=== PATIENT | female | born 1985 | race African-American/Black ===

== ENCOUNTER 2017-08-02 12:47 | Emergency (ER) | payer OTHER ==
[2017-08-02] MEDS ORDERED: LORazepam TAB(*) 1 MG PO ONE (12:54)
[2017-08-02 13:11] LABS: ABS Basophils 0 10^3/ul (0-0.2); ABS Eosinophils 0.1 10^3/ul (0-0.6); ABS Lymphocytes 1.8 10^3/ul (1.0-4.8); ABS Monocytes 0.3 10^3/ul (0-0.8); ABS Neutrophils 4.2 10^3/ul (1.5-7.7); ABS Nucleated RBC 0 10^3/ul; Hematocrit 35 % (35-47); Hemoglobin 11.6 g/dl (12.0-16.0); Lymphocyte % 28.3 % (25-47); Mean Corpuscular HGB Conc 33 g/dl (31-36); Mean Corpuscular Hemoglobin 27 pg (27-31); Mean Corpuscular Volume 80 fL (80-97); Mean Platelet Volume 8 um3 (7.4-10.4); Nucleated Red Blood Cells % 0; Platelet Count 215 10^3/ul (150-450); Red Blood Count 4.35 10^6/ul (4.0-5.4); Red Cell Distribution Width 17 % (10.5-15); White Blood Count 6.4 10^3/ul (3.5-10.8)
[2017-08-02 13:24] LABS: EGFR Non-African American 71.7 (>60)
--- OUTSIDE RECORDS SUMMARY | 2017-08-02 13:45 | XMS REPORT ---
:1985 External Reference #:[id number] Author Organization [facility] Address [address] [facility] [address] [address] Phone [phone] Care Team Providers Name Role Phone Cammy Gilbert MD Primary Care Physician Unavailable Payers Type Date Identification Numbers Payment Provider Subscriber Commercial Policy Number: [id number] [employer] Student [employer] Domi Hendrix PayID: [id number] [address] [place] [address] Problems Date Description Provider Status Onset: 01/10/2016 Asthma Edson Butler M.D. Active Onset: 02/23/2016 Pneumonia Britney Medrano MD Active Family History Date Family Member(s) Problem(s) Comments Father Hypertension Mother Alive And Well Social History Type Date Description Comments Marital Status Single Occupation Student 1 dog in the home ETOH Use Occasionally consumes alcohol Smoking Patient has never smoked Daily Caffeine Does Not Consume Caffeine Exercise Type/Frequency Does not exercise Allergies, Adverse Reactions, Alerts Date Description Reaction Status Severity Comments 02/24/2016 Augmentin fever, body pains active 02/27/2016 Penicillins fever, body pains active 02/27/2016 Zosyn fever, body pains active 04/30/2017 Dye, Red active 01/19/2016 NKDA inactive Medications Medication Date Status Form Strength Qnty SIG Indications Ordering Provider Multiple 00/00/ Active Tablets 1 by mouth Unknown Vitamin 0000 every day Ventolin HFA / Active Aerosol 108(90Bas 2 puffs by Unknown 0000 e) mouth four mcg/Act times a day as needed Advil / Active Tablets 200mg as needed Unknown 0000 Tylenol 00/00/ Active Tablets 325mg as needed Unknown 0000 Albuterol / Active Nebulizer (2.5mg/3M 1 vial via Unknown Sulfate 0000 L) 0.083% nebulizer 4 times daily as needed Propranolol 00/ Active Tablets 20mg Take 1/2 Unknown HCL 0000 Tablet By Mouth Daily as Needed For Anxiety Advair HFA / Active Aerosol 2 puff twice Unknown 0000 a day as needed (OTC) Clindamycin 04/30/ Hx Capsules 300mg 15cap 1 tabs by J03.80 Edson HCL 2017 - s mouth 3 D. 07/07/ times a day 2016 M.D. Nystatin 07/11/ Hx Suspension [id number] 120ml 4 B37.0 Edson 2016 - t/ML milliliters D. 04/29/ four times a Michelle2016 day, swish M.D. and swallow for 7 days Ondansetron 02/26/ Hx Tablets 4mg 30tab 1 tab R11.0 Edson 2016 - Dispers s dissolve D. 05/29/ under tongue 2015 every 8 M.D. hours as needed Moxifloxacin 02/21/ Hx Tablets 400mg 1 by mouth Unknown HCL 2016 - every day 2015 Linezolid 02/21/ Hx Tablets 600mg 1 by mouth Unknown 2016 - twice a day 2015 Ferrous 02/21/ Hx Tablets 325(65Fe) 1 by mouth Unknown Sulfate 2016 - mg every day 2016 Amoxicillin/Cl 02/15/ Hx Tablets 500-125mg 14tab 1 tab by R50.9 Edson avulanate 2015 - s mouth two D. Potassium 02/21/ times per Michelle2015 day M.D. Invanz / Hx Solution 1gm every 24 Unknown 0000 - Rec hours 2015 [facility] Probiotic / Hx Capsules 1 by mouth Unknown Acidophilus 0000 - daily 2015 Advair Diskus / Hx Aerosol 100-50mcg 1 inhalation Unknown 0000 - /Dose twice daily 2015 Nuvaring / Hx Ring 0.12-0.01 insert 1 Unknown 0000 - 5mg/24HR ring 07/10/ vaginally 2016 every [address] for 3 weeks, remove, and replace with a new ring after 7 day break for b Monistat 7 00/ Hx insert at Unknown 0000 - bedtime 2016 Vital Signs Date Vital Result Comment 07/08/2017 Height 68 inches 5'8" Weight 168.38 lb Heart Rate 84 /min BP Systolic Sitting 128 mmHg BP Diastolic Sitting 80 mmHg Respiratory Rate 14 /min Body Temperature 99.3 F BMI (Body Mass Index) 25.6 kg/m2 04/30/2017 Height 68 inches 5'8" Weight 162.50 lb Heart Rate 84 /min BP Systolic Sitting 120 mmHg BP Diastolic Sitting 82 mmHg Respiratory Rate 14 /min Body Temperature 98.5 F O2 % BldC Oximetry 98 % BMI (Body Mass Index) 24.7 kg/m2 07/25/2016 Height 68 inches 5'8" Weight 169.12 lb Heart Rate 86 /min BP Systolic Sitting 110 mmHg BP Diastolic Sitting 78 mmHg Respiratory Rate 14 /min Body Temperature 98.8 F O2 % BldC Oximetry 97 % BMI (Body Mass Index) 25.7 kg/m2 07/11/2016 Height 68 inches 5'8" Weight 167.00 lb Heart Rate 84 /min BP Systolic Sitting 108 mmHg BP Diastolic Sitting 60 mmHg Respiratory Rate 14 /min Body Temperature 98.2 F BMI (Body Mass Index) 25.4 kg/m2 05/30/2016 Height 68 inches 5'8" Weight 171.50 lb Heart Rate 94 /min BP Systolic Sitting 130 mmHg BP Diastolic Sitting 92 mmHg Respiratory Rate 14 /min Body Temperature 99.6 F BMI (Body Mass Index) 26.1 kg/m2 02/27/2016 Height 68 inches 5'8" Weight 157.38 lb Heart Rate 86 /min BP Systolic Sitting 106 mmHg BP Diastolic Sitting 62 mmHg Respiratory Rate 14 /min Body Temperature 98.7 F O2 % BldC Oximetry 98 % BMI (Body Mass Index) 23.9 kg/m2 02/23/2016 Height 68 inches 5'8" Weight 160.00 lb Heart Rate 86 /min BP Systolic 108 mmHg BP Diastolic 84 mmHg Respiratory Rate 14 /min Body Temperature 98.5 F O2 % BldC Oximetry 97 % BMI (Body Mass Index) 24.3 kg/m2 Neck Circumference in inches 12 02/16/2016 Height 68 inches 5'8" Weight 160.12 lb Heart Rate 104 /min BP Systolic Sitting 110 mmHg BP Diastolic Sitting 80 mmHg Respiratory Rate 14 /min Body Temperature 100.7 F O2 % BldC Oximetry 97 % BMI (Body Mass Index) 24.3 kg/m2 01/26/2016 Height 68 inches 5'8" Weight 153.00 lb Heart Rate 96 /min BP Systolic Sitting 106 mmHg BP Diastolic Sitting 76 mmHg Respiratory Rate 14 /min Body Temperature 98.9 F BMI (Body Mass Index) 23.3 kg/m2 01/19/2016 Height 68 inches 5'8" Weight 153.00 lb Heart Rate 96 /min BP Systolic Sitting 106 mmHg BP Diastolic Sitting 64 mmHg Respiratory Rate 14 /min Body Temperature 98.7 F BMI (Body Mass Index) 23.3 kg/m2 01/10/2016 Height 68 inches 5'8" Weight 152.00 lb Heart Rate 84 /min BP Systolic Sitting 112 mmHg BP Diastolic Sitting 64 mmHg Respiratory Rate 14 /min Body Temperature 98.2 F BMI (Body Mass Index) 23.1 kg/m2 Results Test Date Test Result H/L Range Note Laboratory test 06/06/2017 Tissue Culture SEE RESULT BELOW 1 finding & Sensitiv Laboratory test 06/06/2017 Cytology Non-Shirt Creaser SEE RESULT BELOW 2 finding CBC Auto Diff 04/30/2017 White Blood Count 4.9 10^3/uL 3.5-10.8 Red Blood Count 4.47 10^6/uL 4.0-5.4 Hemoglobin 11.8 g/dL Low 12.0-16.0 Hematocrit 35 % 35-47 Mean Corpuscular Volume 79 fL Low 80-97 Mean Corpuscular Hemoglobin 26 pg Low 27-31 Mean Corpuscular HGB Conc 33 g/dL 31-36 Red Cell Distribution Width 15 % 10.5-15 Platelet Count 218 10^3/uL 150-450 Mean Platelet Volume 8 um3 7.4-10.4 Abs Neutrophils 3.2 10^3/uL 1.5-7.7 Abs Lymphocytes 1.2 10^3/uL 1.0-4.8 Abs Monocytes 0.3 10^3/uL 0-0.8 Abs Eosinophils 0.1 10^3/uL 0-0.6 Abs Basophils 0 10^3/uL 0-0.2 Abs Nucleated RBC 0 10^3/uL Granulocyte % 66.7 % 38-83 Lymphocyte % 24.8 % Low 25-47 Monocyte % 6.3 % 1-9 Eosinophil % 1.8 % 0-6 Basophil % 0.4 % 0-2 Nucleated Red Blood Cells % 0 HIV 1/2 AB Evaluation 04/30/2017 HIV 1 2 Antibody Nonreactive Nonreactive 3 Gerber Saez 04/30/2017 Ebv Capsid Ag IgG Ab Positive Negative Comprehensive Ebv Capsid Ag IgM Ab Positive Negative Gerber-Saez Nuclear Antigen Positive Negative Gerber-Saez Virus Interp See Comment 4 GC/Chlamydia Amplified Rna 04/30/2017 Chlamydia trachomatis Rna Negative Negative Neisseria gonorrhoeae (GC) Rna Negative Negative C Trachomatis Misc Source Rna 04/30/2017 C trachomatis Source THROAT 5 Chlamydia trachomatis Rna Negative Negative 5, 6 N Gonorrhoea Misc Source Rna 04/30/2017 N. gonorrhoeae Source THROAT 5 Neisseria Gonorrhoeae Rna Negative Negative 5, 7 Laboratory test finding 02/17/2016 Blood Culture SEE RESULT BELOW 8 Comp Metabolic Panel 02/17/2016 Sodium 134 mmol/L 133-145 Potassium 4.0 mmol/L 3.5-5.0 Chloride 102 mmol/L 101-111 Co2 Carbon Dioxide 25 mmol/L 22-32 Anion Gap 7 mmol/L 2-11 Glucose 83 mg/dL 70-100 Blood Urea Nitrogen 9 mg/dL 6-24 Creatinine 0.71 mg/dL 0.51-0.95 BUN/Creatinine Ratio 12.7 8-20 Calcium 8.9 mg/dL 8.6-10.3 Total Protein 7.8 g/dL 6.4-8.9 Albumin 3.6 g/dL 3.2-5.2 Globulin 4.2 g/dL High 2-4 Albumin/Globulin Ratio 0.9 Low 1-3 Total Bilirubin 0.30 mg/dL 0.2-1.0 Alkaline Phosphatase 124 U/L High 34-104 Alt 32 U/L 7-52 Ast 36 U/L 13-39 Egfr Non- 97.3 >60 Egfr 125.2 >60 9 CBC Auto Diff 02/17/2016 White Blood Count 9.5 10^3/uL 3.5-10.8 Red Blood Count 4.18 10^6/uL 4.0-5.4 Hemoglobin 9.5 g/dL Low 12.0-16.0 Hematocrit 30 % Low 35-47 Mean Corpuscular Volume 71 fL Low 80-97 10 Mean Corpuscular Hemoglobin 23 pg Low 27-31 Mean Corpuscular HGB Conc 32 g/dL 31-36 Red Cell Distribution Width 20 % High 10.5-15 Platelet Count 389 10^3/uL 150-450 Mean Platelet Volume 8 um3 7.4-10.4 Abs Neutrophils 7.8 10^3/uL High 1.5-7.7 Abs Lymphocytes 0.9 10^3/uL Low 1.0-4.8 Abs Monocytes 0.4 10^3/uL 0-0.8 Abs Eosinophils 0.2 10^3/uL 0-0.6 Abs Basophils 0.1 10^3/uL 0-0.2 Abs Nucleated RBC 0 10^3/uL Granulocyte % 82.9 % 38-83 Lymphocyte % 9.5 % Low 25-47 Monocyte % 4.6 % 1-9 Eosinophil % 2.1 % 0-6 Basophil % 0.9 % 0-2 Nucleated Red Blood Cells % 0 Laboratory test finding 02/17/2016 C Reactive Protein 81.37 mg/L High &lt ; 5.00 11 CBC Auto Diff 01/24/2016 White Blood Count 5.9 10^3/uL 3.5-10.8 12 Red Blood Count 4.07 10^6/uL 4.0-5.4 12 Hemoglobin 9.4 g/dL Low 12.0-16.0 12 Hematocrit 29 % Low 35-47 12 Mean Corpuscular Volume 72 fL Low 80-97 12, 13 Mean Corpuscular Hemoglobin 23 pg Low 27-31 12 Mean Corpuscular HGB Conc 32 g/dL 31-36 12 Red Cell Distribution Width 21 % High 10.5-15 12 Platelet Count 305 10^3/uL 150-450 12 Mean Platelet Volume 8 um3 7.4-10.4 12 Abs Neutrophils 3.8 10^3/uL 1.5-7.7 12 Abs Lymphocytes 1.4 10^3/uL 1.0-4.8 12 Abs Monocytes 0.5 10^3/uL 0-0.8 12 Abs Eosinophils 0.2 10^3/uL 0-0.6 12 Abs Basophils 0 10^3/uL 0-0.2 12 Abs Nucleated RBC 0 10^3/uL 12 Granulocyte % 64.6 % 38-83 12 Lymphocyte % 24.2 % Low 25-47 12 Monocyte % 8.2 % 1-9 12 Eosinophil % 2.6 % 0-6 12 Basophil % 0.4 % 0-2 12 Nucleated Red Blood Cells % 0.1 12 Laboratory test 01/24/2016 C Reactive Protein 24.09 mg/L High < 5.00 12, 14 finding Comp Metabolic Panel 01/24/2016 Sodium 136 mmol/L 133-145 12 Potassium 3.5 mmol/L 3.5-5.0 12 Chloride 102 mmol/L 101-111 12 Co2 Carbon Dioxide 27 mmol/L 22-32 12 Anion Gap 7 mmol/L 2-11 12 Glucose 94 mg/dL 70-100 12 Blood Urea Nitrogen 10 mg/dL 6-24 12 Creatinine 0.65 mg/dL 0.51-0.95 12 BUN/Creatinine Ratio 15.4 8-20 12 Calcium 9.0 mg/dL 8.6-10.3 12 Total Protein 7.4 g/dL 6.4-8.9 12 Albumin 3.6 g/dL 3.2-5.2 12 Globulin 3.8 g/dL 2-4 12 Albumin/Globulin Ratio 0.9 Low 1-3 12 Total Bilirubin 0.20 mg/dL 0.2-1.0 12 Alkaline Phosphatase 67 U/L 34-104 12 Alt 15 U/L 7-52 12 Ast 17 U/L 13-39 12 Egfr Non- 107.8 >60 12 Egfr 138.6 >60 12, 15 Laboratory test finding 01/16/2016 Ferritin < 10.0 ng/mL Low 11-307 Iron & Iron Binding Capacity 01/16/2016 Iron 37 g/dL Low 50-212 Unsaturated Iron Binding 349 g/dL Total Iron Binding Capacity 386 g/dL 250-450 % Iron Saturation 10 % Low 15-55 Laboratory test finding 01/16/2016 C Reactive Protein 2.03 mg/L < 5.00 16 Comp Metabolic Panel 01/16/2016 Sodium 137 mmol/L 133-145 Potassium 3.4 mmol/L Low 3.5-5.0 Chloride 104 mmol/L 101-111 Co2 Carbon Dioxide 26 mmol/L 22-32 Anion Gap 7 mmol/L 2-11 Glucose 86 mg/dL 70-100 Blood Urea Nitrogen 7 mg/dL 6-24 Creatinine 0.66 mg/dL 0.51-0.95 BUN/Creatinine Ratio 10.6 8-20 Calcium 8.9 mg/dL 8.6-10.3 Total Protein 7.0 g/dL 6.4-8.9 Albumin 3.5 g/dL 3.2-5.2 Globulin 3.5 g/dL 2-4 Albumin/Globulin Ratio 1.0 1-3 Total Bilirubin 0.50 mg/dL 0.2-1.0 Alkaline Phosphatase 64 U/L 34-104 Alt 14 U/L 7-52 Ast 19 U/L 13-39 Egfr Non- 105.9 >60 Egfr 136.2 >60 17 CBC Auto Diff 01/16/2016 White Blood Count 3.9 10^3/uL 3.5-10.8 Red Blood Count 3.76 10^6/uL Low 4.0-5.4 Hemoglobin 8.7 g/dL Low 12.0-16.0 Hematocrit 27 % Low 35-47 Mean Corpuscular Volume 72 fL Low 80-97 18 Mean Corpuscular Hemoglobin 23 pg Low 27-31 Mean Corpuscular HGB Conc 32 g/dL 31-36 Red Cell Distribution Width 21 % High 10.5-15 Platelet Count 292 10^3/uL 150-450 Mean Platelet Volume 8 um3 7.4-10.4 Abs Neutrophils 2.0 10^3/uL 1.5-7.7 Abs Lymphocytes 1.4 10^3/uL 1.0-4.8 Abs Monocytes 0.3 10^3/uL 0-0.8 Abs Eosinophils 0.1 10^3/uL 0-0.6 Abs Basophils 0 10^3/uL 0-0.2 Abs Nucleated RBC 0 10^3/uL Granulocyte % 51.9 % 38-83 Lymphocyte % 36.1 % 25-47 Monocyte % 8.7 % 1-9 Eosinophil % 2.4 % 0-6 Basophil % 0.9 % 0-2 Nucleated Red Blood Cells % 0.1 Laboratory test finding 01/09/2016 C Reactive Protein 3.02 mg/L < 5.00 19 Comp Metabolic Panel 01/09/2016 Sodium 135 mmol/L 133-145 Potassium 4.2 mmol/L 3.5-5.0 Chloride 101 mmol/L 101-111 Co2 Carbon Dioxide 26 mmol/L 22-32 Anion Gap 8 mmol/L 2-11 Glucose 83 mg/dL 70-100 Blood Urea Nitrogen 13 mg/dL 6-24 Creatinine 0.69 mg/dL 0.51-0.95 BUN/Creatinine Ratio 18.8 8-20 Calcium 9.5 mg/dL 8.6-10.3 Total Protein 8.0 g/dL 6.4-8.9 Albumin 3.9 g/dL 3.2-5.2 Globulin 4.1 g/dL High 2-4 Albumin/Globulin Ratio 1.0 1-3 Total Bilirubin 0.40 mg/dL 0.2-1.0 Alkaline Phosphatase 80 U/L 34-104 Alt 22 U/L 7-52 Ast 20 U/L 13-39 Egfr Non- 100.6 >60 Egfr 129.4 >60 20 CBC Auto Diff 01/09/2016 White Blood Count 4.0 10^3/uL 3.5-10.8 Red Blood Count 4.07 10^6/uL 4.0-5.4 Hemoglobin 9.2 g/dL Low 12.0-16.0 Hematocrit 29 % Low 35-47 Mean Corpuscular Volume 71 fL Low 80-97 21 Mean Corpuscular Hemoglobin 23 pg Low 27-31 Mean Corpuscular HGB Conc 32 g/dL 31-36 Red Cell Distribution Width 19 % High 10.5-15 Platelet Count 586 10^3/uL High 150-450 Mean Platelet Volume 7 um3 Low 7.4-10.4 Abs Neutrophils 1.7 10^3/uL 1.5-7.7 Abs Lymphocytes 1.8 10^3/uL 1.0-4.8 Abs Monocytes 0.3 10^3/uL 0-0.8 Abs Eosinophils 0.1 10^3/uL 0-0.6 Abs Basophils 0.1 10^3/uL 0-0.2 Abs Nucleated RBC 0 10^3/uL Granulocyte % 43.0 % 38-83 Lymphocyte % 44.3 % 25-47 Monocyte % 7.8 % 1-9 Eosinophil % 2.3 % 0-6 Basophil % 2.6 % High 0-2 Nucleated Red Blood Cells % 0 1 SEE RESULT BELOW Name: DOMI HENDRIX : [address]: Bao Barrios MD Acct: [id number] Unit: [id number] AGE: 31 Location: LAB Re06/06/17 SEX: F Status: REG REF SPEC: [id number] KALEY: 06/06/[address]: Bao Barrios MD REQ: [id number] RECD: 06/06/17 STATUS: RES OTHR DR: Cammy Butler MD _ SOURCE: TISSUE SPDESC:OTHER ORDERED: Tissue Cult/GS, Fungal - Other, AFB Cult Smear Procedure Result Reported Site Tissue Gram Stain Final 06/06/17- 1836 ML 4+ Nucleated Cells 2+ Neutrophils No Organisms Seen Preparation By Cytospin Smear Tissue Culture Preliminary 06/07/17- 1048 ML No Growth Day 1 Fungal Cult - Other Sources PENDING Acid Fast Stain - Direct Final 06/06/17- 1836 ML AFB Smear Result No Acid Fast Bacillus Present (Negative) Preparation By Cytospin Smear Due to limited sensitivity of the smear, results should be used as an adjunct in evaluating the patient's status. This specimen has been sent to referral laboratory for mycobacterial culture. * ML - MAIN LAB ([facility]) . END OF REPORT * ML=Testing performed at Main Lab DEPARTMENT OF PATHOLOGY, [address] [place] [address] Jori Baires M.D. 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 See comment. Comment: The aspirate smears are amply cellular demonstrating numerous noncaseating well formed granulomas with variable associated acute inflammation. The background demonstrates mixed lymphocytes with scattered histiocytes including tingible body forms. No evidence of hematolymphoid or metastatic neoplasia identified in this specimen. The differential diagnosis includes infectious etiologies including mycobacterial, fungal or bacterial (i.e. Bartonella, etc.) or less likely as a noninfectious reaction. These findings are consistent with the clinical exam. Correlation with pending microbiology studies as well as additional serologic studies may be considered as warranted. The procedure was explained to and understood by the patient. Signed consent was obtained and a time out procedure was performed at the bedside to verify patient identity and biopsy site. Fine needle aspiration biopsy was performed times 2 with a 0.5 gauge needle on 3 cm soft tender right angle of jaw nodule. Adequacy was assessed by fast stain technique. The procedure was tolerated well without complications. CONTINUED ON NEXT PAGE * ML=Testing performed at Main Lab DEPARTMENT OF PATHOLOGY, [address] [place] [address] Jori Baires M.D. Director [facility] # [id number] RUN DATE: 06/10/17 [facility] LAB LIVE PAGE 2 Patient: DOMI HENDRIX [id number] (Continued) SPECIMEN COMMENTS (Continued) 1. SUBMANDIBULAR - RIGHT SUBMANDIBULAR MASS FINE NEEDLE ASPIRATION BY PALPATION CLINICAL HISTORY 3 cm tender right angle of jaw mass. GROSS DESCRIPTION 4 Alcohol fixed slide(s) and Microbiology studies ordered. Signed (signature on file) Jori Baires MD [id number] END OF REPORT * ML=Testing performed at Main Lab DEPARTMENT OF PATHOLOGY, [address] [place] [address] Jori Baires M.D. Director [facility] # [id number] 3 It is recognized that currently available assays for the detection of antibodies to HIV-1 and/or HIV-2 may not detect all infected individuals. HIV antibodies may be undetectable in some stages of the infection and in some clinical conditions. The performance of this assay has not been established for populations of infants or children. Assayed by Chemiluminescence Microparticle Immunoassay on the Siemens Advia Centaur CP. Values obtained with different methods or kits cannot be used interchangeably.The diagnostic specificity of the ADVIA Centaur 1/O/2 Enhanced assay in the low risk population was 99.90% (6052/6058) with a 95% confidence interval of 99.78 to 99.96%. 4 RESULT: Results may suggest recovery or reactivation. ADDITIONAL INFORMATION In most populations, at least 90% of the adult population will have been infected with EBV sometime in the past and therefore, will be positive for anti-VCA/IgG and anti- EBNA. Antibodies to EBNA develop 6-8 weeks after primary infection and remain present for life. Presence of VCA/ IgM antibodies indicates recent primary infection with EBV. Test Performed by: [facility] [employer] [facility] [address] [place] [address] [id number] Source: throat 6 ADDITIONAL INFORMATION This report is intended for use in clinical monitoring and management of patients. It is not intended for use in medical-legal applications. This test has been modified from the hairspring adjuster's instructions. Its performance characteristics were determined by [facility] in a manner consistent with CLIA requirements. This test has not been cleared or approved by the U.S. Food and Drug Administration. Test Performed by: [facility] - [address] [address] 7 ADDITIONAL INFORMATION This report is intended for use in clinical monitoring and management of patients. It is not intended for use in medical-legal applications. This test has been modified from the hairspring adjuster's instructions. Its performance characteristics were determined by [facility] in a manner consistent with CLIA requirements. This test has not been cleared or approved by the U.S. Food and Drug Administration. Test Performed by: [facility] - [address] [address] 8 SEE RESULT BELOW Name: DOMI HENDRIX : [address]: Edson Butler MD Acct: [id number] Unit: [id number] AGE: 30 Location: [facility] Re02/17/16 SEX: F Status: REG REF SPEC: [id number] KALEY: 02/17/[address]: Edson Butler MD REQ: [id number] RECD: 02/17/16 STATUS: COMP _ SOURCE: BLOOD,VENO SPDESC: ORDERED: Blood Cult Procedure Result Reported Site Aerobic Culture Bottle Final 02/22/16- 1027 ML No Growth Day 5 Anaerobic Culture Bottle Final 02/22/16- 1027 ML No Growth Day 5 * ML - MAIN LAB ([facility]) . END OF REPORT * ML=Testing performed at Main Lab DEPARTMENT OF PATHOLOGY, [address] [place] [address] Jori Baires M.D. Director [facility] # [id number] 9 Because ethnic data is not always readily available, this report includes an eGFR for both -Americans and non- Americans. The National Kidney Disease Education Program (NKDEP) does not endorse the use of the MDRD equation for patients that are not between the ages of 18 and 70, are , have extremes of body size, muscle mass, or nutritional status, or are non- or non-. According to the National Kidney Foundation, irrespective of diagnosis, the stage of the disease is based on the level of kidney function: Stage Description GFR(mL/min/1.73 m(2)) 1 Kidney damage with normal or decreased GFR 90 2 Kidney damage with mild decrease in GFR 60-89 3 Moderate decrease in GFR 30-59 4 Severe decrease in GFR 15-29 5 Kidney failure <15 (or dialysis) 10 Consistent with previous results on 01/24/16. 11 Acute inflammation: >10.00 12 [id number] Consistent with previous results on 01-15. 14 Acute inflammation: >10.00 15 Because ethnic data is not always readily available, this report includes an eGFR for both -Americans and non- Americans. The National Kidney Disease Education Program (NKDEP) does not endorse the use of the MDRD equation for patients that are not between the ages of 18 and 70, are , have extremes of body size, muscle mass, or nutritional status, or are non- or non-. According to the National Kidney Foundation, irrespective of diagnosis, the stage of the disease is based on the level of kidney function: Stage Description GFR(mL/min/1.73 m(2)) 1 Kidney damage with normal or decreased GFR 90 2 Kidney damage with mild decrease in GFR 60-89 3 Moderate decrease in GFR 30-59 4 Severe decrease in GFR 15-29 5 Kidney failure <15 (or dialysis) 16 Acute inflammation: >10.00 17 Because ethnic data is not always readily available, this report includes an eGFR for both -Americans and non- Americans. The National Kidney Disease Education Program (NKDEP) does not endorse the use of the MDRD equation for patients that are not between the ages of 18 and 70, are , have extremes of body size, muscle mass, or nutritional status, or are non- or non-. According to the National Kidney Foundation, irrespective of diagnosis, the stage of the disease is based on the level of kidney function: Stage Description GFR(mL/min/1.73 m(2)) 1 Kidney damage with normal or decreased GFR 90 2 Kidney damage with mild decrease in GFR 60-89 3 Moderate decrease in GFR 30-59 4 Severe decrease in GFR 15-29 5 Kidney failure <15 (or dialysis) 18 Consistent with previous results on 01/09/16. 19 Acute inflammation: >10.00 20 Because ethnic data is not always readily available, this report includes an eGFR for both -Americans and non- Americans. The National Kidney Disease Education Program (NKDEP) does not endorse the use of the MDRD equation for patients that are not between the ages of 18 and 70, are , have extremes of body size, muscle mass, or nutritional status, or are non- or non-. According to the National Kidney Foundation, irrespective of diagnosis, the stage of the disease is based on the level of kidney function: Stage Description GFR(mL/min/1.73 m(2)) 1 Kidney damage with normal or decreased GFR 90 2 Kidney damage with mild decrease in GFR 60-89 3 Moderate decrease in GFR 30-59 4 Severe decrease in GFR 15-29 5 Kidney failure <15 (or dialysis) 21 Consistent with previous results on 01/01/16. Procedures Date CPT Code Description Status 02/08/2016 79248 ECHO Transthorasic Realtime 2D W Doppler & Color Completed Flow Hosp 12/26/2015 15062 ECHO Transthorasic Realtime 2D W Doppler & Color Completed Flow Hosp Encounters Type Date Location Provider CPT E/M Dx Office Visit 04/30/2017 [facility] Narinder Lennon 46597 J03.80 8:30a Infectious Angela Butler M.D. Office Visit 07/25/2016 [facility] Narinder Lennon 98135 D50.9 1:20p Infectious Angela Butler M.D. R50.9 Office Visit 07/11/2016 3:00p [facility] Narinder Butler, 12823 D50.9 Infectious Diseases M.D. R53.83 R10.12 B37.0 Office Visit 05/30/2016 3:00p [facility] Narinder Butler, 02091 D50.9 Infectious Diseases M.D. R53.83 R19.7 R10.12 Office Visit 02/27/2016 2:00p [facility] Narinder Butler, 84246 J18.9 Infectious Diseases M.D. R91.8 D50.9 R11.0 Office Visit 02/23/2016 11:00a [facility] [place] [address] J45.909 [facility] J18.9 R91.8 Office Visit 02/17/2016 12:56p [facility] Paula Bro, 99713 A41.9 Assoc,pc TYPE [employer] Hospitalists J45.909 J18.9 Office Visit 02/16/2016 1:40p [facility] Narinder Butler, 69056 R50.9 Infectious Diseases M.D. R91.8 R00.0 Office Visit 01/26/2016 3:40p [facility] Narinder Butler, 06556 D50.9 Infectious Diseases M.DJeffery J02.9 R78.81 R00.2 Office Visit 01/19/2016 4:00p [facility] Narinder Butler, 22336 A41.59 Infectious Diseases M.D. D50.9 J02.9 R50.9 Office Visit 01/10/2016 11:10a [facility] Narinder Butler, 80742 J03.90 Infectious Diseases M.D. A41.59 R59.0 R78.81 R91.8 Office Visit 01/02/2016 11:30a [facility] Edson Butler, 14727 J03.90 Infectious Diseases M.D. R59.0 R78.81 R91.8 J45.909 Office Visit 01/02/2016 11:14a [facility], [place] [address] R65.20 Hospitalists J96.01 R59.0 A41.59 Office Visit 01/01/2016 11:13a [facility] [place]oc,[place] [address] R65.20 Hospitalists J96.01 A41.59 R59.0 Office Visit 12/31/2015 11:13a [facility], [place] [address] R65.20 Hospitalists J96.01 A41.59 R59.0 Office Visit 12/30/2015 [facility] [place] [address] R65.20 Hospitalists J96.01 A41.59 R59.0 Office Visit 12/29/2015 11:12a [facility], [place] [address] R65.20 Hospitalists J96.01 R59.0 A41.59 Office Visit 12/28/2015 [facility] [address] R65.20 [facility]oc,pc Hospitalbrennen Padron J96.01 R59.0 A41.59 Office Visit 12/27/2015 11:11a [facility] 43588 R65.20 Assoc,pc Hospitalists Vito J96.01 R59.0 A41.59 Office Visit 12/27/2015 11:10a [facility] Assoc,raad Lopez 60520 R65.20 Hospitalists Theresa Pichardo J96.01 R59.0 A41.59 Office Visit 12/26/2015 11:10a [facility] Alexa, 56919 R65.20 Assoc,pc Hospitalbrennen Padron J96.01 A41.59 R59.0 Office Visit 12/26/2015 11:09a [facility] Assoc,pc Amos Lopez 34872 R65.20 Hospitalists Theresa Pichardo J96.01 R59.0 A41.59 Office Visit 12/25/2015 11:08a [facility],raad Liu, 69471 R59.0 Hospitalists Vito R50.9 M02.30 A41.9 Plan of Care Future Appointment(s):07/30/2017 9:50 am - Edson Butler M.D. at [facility]vxghjgf48/18/2017 - Edson Butler M.D.L04.0 Acute lymphadenitis of face, head and neckComments:granulomatous for which there is a broad differential; improved with clinda so likely not TB, serology as below. If not continuing to improve over the next week she will call and I will send in another course of [id number] Unspecified asthma, uncomplicatedFollow up:3 weeks
[2017-08-02 15:53] VITALS: BP 107/64
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
== END 2017-08-02 16:13 | disposition home or self-care (01) ==
LOC: ED 12:47
DX: T40.7X5A Adverse effect of cannabis (derivatives), initial encounter (principal); Y92.9 Unspecified place or not applicable
CPT/HCPCS: 36415; 80053; 80307; 85025; 99283; A9270-GY